=== PATIENT | female | born 2000 | race Caucasian/White ===

== ENCOUNTER 2023-08-10 01:48 | Emergency (ER) | payer OTHER, SELFPAY ==
[2023-08-10 01:50] VITALS: BP 111/83; PULSE 80; TEMP 36.4; O2SAT 99; BMI 33.6
--- NOTE | 2023-08-10 01:55 | PC.NURSE ---
nausea and vomiting after consuming cbd gummie
--- NOTE | 2023-08-10 01:56 | ED.NAVMDI1 ---
HPI - Nausea/Vomiting/Diarrhea General Chief complaint: Nausea/Vomiting/Diarrhea Stated complaint: VOMTING Time Seen by Provider: 08/10/23 01:55 Mode of arrival: ambulance Limitations: no limitations History of Present Illness HPI Narrative: ate CBD gummy at concert and now cant stop vomiting. no abdominal pain or headache. denies Related Data Allergies Allergy/AdvReac Type Severity Reaction Status Date / Time nitrofurantoin Allergy Unknown Verified 08/10/23 01:50 [From Macrobid] Penicillins Allergy Unknown Verified 08/10/23 01:50 Review of Systems ROS Status of ROS 10 or more systems reviewed and unremarkable except as noted in history and below Exam Constitutional Vital Signs, click to edit/add: Last Vital Signs Temp 97.6 F 08/10/23 01:50 Pulse 84 08/10/23 02:22 Resp 16 08/10/23 02:22 BP 111/83 08/10/23 01:50 Pulse Ox 99 08/10/23 02:22 O2 Del Method Room Air 08/10/23 01:50 Common normals: no apparent distress, average body habitus, oriented x3, no limitations, healthy appearing, alert and well nourished [facility] Common normals: normocephalic and head/scalp atraumatic Eye Common normals: EOMs intact bilaterally and conjunctivae normal Respiratory Common normals: normal respiratory effort, no retractions, no use of accessory muscles and clear to auscultation bilaterally Cardio Common normals: regular rate, regular rhythm, S1 normal heart sound and S2 normal heart sound GI Common normals: Normal to inspection, nondistended, normoactive bowel sounds present, soft to palpation and non-tender Extremity Common normals: normal to inspection and full ROM Neuro Common normals: oriented x3, CN's II-XII intact bilaterally, moves all extremities and no focal motor deficits Psych Appearance: grossly normal Course Vital Signs Vital signs: Vital Signs Temperature 97.6 F 08/10/23 01:50 Pulse Rate 80 08/10/23 01:50 Respiratory Rate 15 08/10/23 01:50 Blood Pressure 111/83 08/10/23 01:50 Pulse Oximetry 99 08/10/23 01:50 Oxygen Delivery Method Room Air 08/10/23 01:50 Temperature 97.6 F 08/10/23 01:50 Pulse Rate 84 08/10/23 02:22 Respiratory Rate 16 08/10/23 02:22 Blood Pressure 111/83 08/10/23 01:50 Pulse Oximetry 99 08/10/23 02:22 Oxygen Delivery Method Room Air 08/10/23 01:50 MDM - Nausea/Vomiting/Diarrhea MDM Narrative Medical decision making narrative: patient presents with recurrent vomiting after eating CBD gummy . labs with evidence of demargination. Patient IV established by neha was not working and she refused a new IV. labs with elevated WBC and urine drug screen positive for cannabinoids. Patient treated with zofran ODT and is feeling better and eating a popsicle Lab Data Labs: Lab Results 08/10/23 08/10/23 Range/Units 02:23 02:40 WBC 19.8 H (4.0-11.0) 10^3/uL RBC 4.24 (4.20-5.40) 10^6/uL Hgb 12.3 (12.0-16.0) g/dL Hct 37.1 (36.0-48.0) % MCV 87.5 (81.0-99.0) fL MCH 29.0 (26.7-34.0) pg MCHC 33.2 (29.9-35.2) g/dL RDW 13.4 (11.0-15.0) % Plt Count 417 (150-450) 10^3/uL MPV 9.3 L (9.5-13.5) fL Neut % (Auto) 80.5 H (43.0-75.0) % Lymph % (Auto) 13.2 L (20.5-60.0) % Cass % (Auto) 5.5 (1.7-12.0) % Eos % (Auto) 0.2 L (0.9-7.0) % Baso % (Auto) 0.3 (0.2-2.0) % Neut # (Auto) 16.0 H (1.4-6.5) 10^3/uL Lymph # (Auto) 2.6 (1.2-3.8) 10^3/uL Cass # (Auto) 1.1 H (0.3-0.8) 10^3/uL Eos # (Auto) 0.0 (0.0-0.7) 10^3/uL Baso # (Auto) 0.1 (0.0-0.1) 10^3/uL Abs Immat Gran (auto) 0.06 H (0.00-0.03) 10^3/uL Imm/Tot Granulo (auto) 0.3 (0.0-0.5) % Sodium 137 (136-145) mmol/L Potassium 3.8 (3.5-5.1) mmol/L Chloride 102 (98-107) mmol/L Carbon Dioxide 27.4 (21.0-32.0) mmol/L Anion Gap 11.4 BUN 15.0 (7.0-18.0) mg/dL Creatinine 0.80 (0.55-1.02) mg/dL Est GFR ( Amer) >60 (>=60) Est GFR (Non-Af Amer) >60 (>=60) BUN/Creatinine Ratio 18.8 Glucose 125 H (74-106) mg/dL Calcium 9.4 (8.5-10.1) mg/dL Total Bilirubin 0.3 (0.2-1.0) mg/dL AST 10 L (15-37) U/L ALT 22 (14-59) U/L Alkaline Phosphatase 96 (46-116) U/L Total Protein 8.1 (6.4-8.2) g/dL Albumin 4.0 (3.4-5.0) g/dL Globulin 4.1 g/dL Albumin/Globulin Ratio 1.0 Urine Opiates Screen Negative (NEGATIVE) Ur Buprenorphine Scrn Negative (NEGATIVE) Ur Oxycodone Screen Negative (NEGATIVE) Urine Methadone Screen Negative (NEGATIVE) Ur Barbiturates Screen Negative (NEGATIVE) U Tricyclic Antidepress Negative (NEGATIVE) Ur Phencyclidine Scrn Negative (NEGATIVE) Ur Amphetamines Screen Negative (NEGATIVE) U Methamphetamines Scrn Negative (NEGATIVE) U Benzodiazepines Scrn Negative (NEGATIVE) Urine Cocaine Screen Negative (NEGATIVE) U Cannabinoids Screen Positive A (NEGATIVE) Discharge Plan Discharge Stand Alone Forms: Portal Instructions Chief Complaint: Nausea/Vomiting/Diarrhea Clinical Impression: Drug-induced nausea and vomiting Patient Disposition: Home, Self-Care Mode of Transportation: Private Vehicle Print Language: Kosovan Instructions: Acute Nausea and Vomiting (DC) Referrals: Physician,Non-Staff, MD [Primary Care Provider] - 1 week
[2023-08-10 02:22] VITALS: PULSE 84; O2SAT 99
[2023-08-10 02:33] LABS: Basophils Absolute Auto 0.1 10^3/uL (0.0-0.1); Basophils Percent Auto 0.3 % (0.2-2.0); Eosinophils Percent Auto 0.2 % (0.9-7.0); Hematocrit 37.1 % (36.0-48.0); Hemoglobin 12.3 g/dL (12.0-16.0); Immature Granulocytes Abs Auto 0.06 10^3/uL (0.00-0.03); Immature Granulocytes Pct Auto 0.3 % (0.0-0.5); Lymphocytes Absolute Auto 2.6 10^3/uL (1.2-3.8); Lymphocytes Percent Auto 13.2 % (20.5-60.0); Mean Corpuscular HGB Conc 33.2 g/dL (29.9-35.2); Mean Corpuscular Volume 87.5 fL (81.0-99.0); Mean Platelet Volume 9.3 fL (9.5-13.5); Monocytes Absolute Auto 1.1 10^3/uL (0.3-0.8); Monocytes Percent Auto 5.5 % (1.7-12.0); Neutrophils Percent Auto 80.5 % (43.0-75.0); Platelet Count 417 10^3/uL (150-450); Red Blood Count 4.24 10^6/uL (4.20-5.40); Red Cell Distribution Width 13.4 % (11.0-15.0); White Blood Count 19.8 10^3/uL (4.0-11.0)
[2023-08-10] MEDS: ONDANSETRON 4 MG RAPDIS TABLET SL ×2 (02:38→03:36)
[2023-08-10 02:58] LABS: Alanine Aminotransferase 22 U/L (14-59); Alkaline Phosphatase 96 U/L (46-116); Anion Gap 11.4; Aspartate Amino Transferase 10 U/L (15-37); BUN Creatinine Ratio 18.8; Bilirubin Total 0.3 mg/dL (0.2-1.0); Calcium 9.4 mg/dL (8.5-10.1); Carbon Dioxide 27.4 mmol/L (21.0-32.0); Chloride 102 mmol/L (98-107); Estimated GFR (African America >60 (>=60); Estimated GFR (Non-African Ame >60 (>=60); Globulin 4.1 g/dL; Glucose 125 mg/dL (74-106); Potassium 3.8 mmol/L (3.5-5.1); Sodium 137 mmol/L (136-145); Total Protein 8.1 g/dL (6.4-8.2)
[2023-08-10 03:05] LABS: Amphetamine Screen Urine NEGATIVE (NEGATIVE); Barbiturates Screen Urine NEGATIVE (NEGATIVE); Benzodiazepines Screen Urine NEGATIVE (NEGATIVE); Buprenorphine Screen Urine NEGATIVE (NEGATIVE); Cannabinoid Screen Urine POSITIVE (NEGATIVE); Cocaine Screen Urine NEGATIVE (NEGATIVE); Methadone Screen Urine NEGATIVE (NEGATIVE); Methamphetamines Screen Urine NEGATIVE (NEGATIVE); Opiate Screen Urine NEGATIVE (NEGATIVE); Oxycodone Screen Urine NEGATIVE (NEGATIVE); Phencyclidine Screen Urine NEGATIVE (NEGATIVE); Tricyclic Antidepressant Urine NEGATIVE (NEGATIVE)
== END 2023-08-10 03:37 | disposition home or self-care (01) ==
PROVIDERS: Emergency Provider Internal Medicine
DX: T40.711A Poisoning by cannabis, accidental (unintentional), initial encounter (principal); R11.2 Nausea with vomiting, unspecified
CPT/HCPCS: 36415; 80053; 80307; 85025; 99285; Q0162